=== PATIENT | male | born 1985 | race Caucasian/White ===

== ENCOUNTER 2017-03-26 11:29 | Emergency (ER) | payer SELFPAY ==
[~2017-03-26] VITALS: Ht 170.2 cm; Wt 65.0 kg
[2017-03-26] MEDS ORDERED: TETANUS, DIPHTHERIA, PERTUSSIS VAC/PF 0.5ML (>7YR OLD) IM ONE (12:00)
[2017-03-26] MEDS ORDERED: LIDOCAINE HCL 1%/EPI 1:200,000 30 ML VIAL MC ONE (12:00)
[2017-03-26 13:00] VITALS: BP 136/88
== END 2017-03-26 13:33 | disposition home or self-care (01) ==
LOC: ER 11:29
DX: S01.01XA Laceration without foreign body of scalp, initial encounter (principal); S06.0X0A Concussion without loss of consciousness, initial encounter; W20.8XXA Other cause of strike by thrown, projected or falling object, initial encounter; Y93.89 Activity, other specified; Y92.89 Other specified places as the place of occurrence of the external cause; Y99.8 Other external cause status
CPT/HCPCS: 12002; 70450; 90471; 90715; 99284; A4217; Z7610

== ENCOUNTER 2017-03-31 15:47 | Emergency (ER) | payer SELFPAY ==
[~2017-03-31] VITALS: Ht 165.1 cm; Wt 66.0 kg
[2017-03-31 22:41] VITALS: BP 127/80
== END 2017-03-31 21:50 | disposition home or self-care (01) ==
LOC: ER 15:47
DX: Z48.01 Encounter for change or removal of surgical wound dressing (principal); F17.200 Nicotine dependence, unspecified, uncomplicated
CPT/HCPCS: 99283